=== PATIENT | male | born 1945 | race Hispanic/Latino ===

== ENCOUNTER 2016-12-06 10:38 | Emergency (ER) | payer MEDICARE ==
[~2016-12-06 10:38] MED LIST: SODIUM BICARBONATE IV ONE
--- NOTE | 2016-12-06 13:29 | Emergency Department Report ---
[id number] CARDIAC ARREST Time Seen by Provider: 12/06/16 11:28 Source: EMS Mode of arrival: Stretcher Limitations: Other - History of Present Illness Initial comments: Medics states that the patient was last seen at 3 AM. I am not certain if this history is entirely accurate after talking to the of the patient. She states that she saw the patient take his "last gasp" for she called the medics. In any case the medics arrived at the scene found the patient pulseless and apneic. He was frankly cyanotic. They attempted resuscitation. They state that they intubated the patient lost the endotracheal tube lost it transporting the patient to the ramp. He placed an IO catheter without difficulty. Usual ACLS protocols ensued. The told me later upon counseling that the patient was in respiratory distress or difficulty at a minimum yesterday but refused to come to the hospital. - Related Data Home Medications Medication Instructions Recorded Confirmed Last Taken Aspirin EC [Aspirin Enteric Coated 81 mg PO QDAY 12/06/16 12/06/16 Unknown TAB] AtorvaSTATin [Lipitor] 80 mg PO DAILY 12/06/16 12/06/16 Unknown Cholecalciferol Vit D3 [Vitamin D3] 1,000 unit PO QDAY 12/06/16 12/06/16 Unknown Clopidogrel [Plavix] 75 mg PO QDAY 12/06/16 12/06/16 Unknown Furosemide [Lasix TAB] 40 mg PO QDAY 12/06/16 12/06/16 Unknown Levothyroxine [Synthroid] 75 mcg PO QAM 12/06/16 12/06/16 Unknown Lisinopril [Zestril TAB] 10 mg PO QDAY 12/06/16 12/06/16 Unknown Metoprolol [Lopressor TAB] 50 mg PO BID 12/06/16 12/06/16 Unknown amLODIPine [Norvasc] 10 mg PO DAILY 12/06/16 12/06/16 Unknown buPROPion SR [Wellbutrin Sr] 150 mg PO BID 12/06/16 12/06/16 Unknown tiZANidine [Zanaflex] 4 mg PO QHS 12/06/16 12/06/16 Unknown traMADol [Ultram] 50 mg PO Q4HR PRN 12/06/16 12/06/16 Unknown ED Review of Systems ROS: Stated complaint: CARDIAC ARREST Other details as noted in HPI ED Past Medical Hx - Past Medical History Hx Congestive Heart Failure: Yes Hx Diabetes: Yes Hx COPD: Yes - Medications Home Medications: Home Medications Medication Instructions Recorded Confirmed Last Taken Type Aspirin EC [Aspirin Enteric Coated 81 mg PO QDAY 12/06/16 12/06/16 Unknown History TAB] AtorvaSTATin [Lipitor] 80 mg PO DAILY 12/06/16 12/06/16 Unknown History Cholecalciferol Vit D3 [Vitamin D3] 1,000 unit PO QDAY 12/06/16 12/06/16 Unknown History Clopidogrel [Plavix] 75 mg PO QDAY 12/06/16 12/06/16 Unknown History Furosemide [Lasix TAB] 40 mg PO QDAY 12/06/16 12/06/16 Unknown History Levothyroxine [Synthroid] 75 mcg PO QAM 12/06/16 12/06/16 Unknown History Lisinopril [Zestril TAB] 10 mg PO QDAY 12/06/16 12/06/16 Unknown History Metoprolol [Lopressor TAB] 50 mg PO BID 12/06/16 12/06/16 Unknown History amLODIPine [Norvasc] 10 mg PO DAILY 12/06/16 12/06/16 Unknown History buPROPion SR [Wellbutrin Sr] 150 mg PO BID 12/06/16 12/06/16 Unknown History tiZANidine [Zanaflex] 4 mg PO QHS 12/06/16 12/06/16 Unknown History traMADol [Ultram] 50 mg PO Q4HR PRN 12/06/16 12/06/16 Unknown History ED Physical Exam - General Limitations: Other Critical care attestation.: If time is entered above; I have spent that time in minutes in the direct care of this critically ill patient, excluding procedure time. ED Disposition Clinical Impression: Cardiac arrest Disposition: Is pt being admited?: No Does the pt Need Aspirin: No Condition: Stable Referrals: PRIMARY CARE, [Primary Care Provider] - 3-5 Days Time of Disposition: 13:51
--- NOTE | 2016-12-06 13:40 | Emergency Department Report ---
ED CPR HPI - General Chief Complaint: Cardiac Arrest/CPR Stated Complaint: CARDIAC ARREST Time Seen by Provider: 12/06/16 11:28 Source: EMS Mode of arrival: Stretcher Limitations: Other - History of Present Illness Initial Comments: Medics states that the patient was last seen at 3 AM. I am not certain if this history is entirely accurate after talking to the of the patient. She states that she saw the patient take his "last gasp" for she called the medics. In any case the medics arrived at the scene found the patient pulseless and apneic. He was frankly cyanotic. They attempted resuscitation. They state that they intubated the patient lost the endotracheal tube lost it transporting the patient to the ramp. He placed an IO catheter without difficulty. Usual ACLS protocols ensued. The told me later upon counseling that the patient was in respiratory distress or difficulty at a minimum yesterday but refused to come to the hospital. MD Complaint: found unresponsive -: minute(s), hour(s) Place: home Bystander CPR Performed: No Initial Findings in the Field: lethargic, systole ROSC in the Field: No Associated Injuries: No Associated Symptoms: shortness of breath - Related Data Home Medications Medication Instructions Recorded Confirmed Last Taken Aspirin EC [Aspirin Enteric Coated 81 mg PO QDAY 12/06/16 12/06/16 Unknown TAB] AtorvaSTATin [Lipitor] 80 mg PO DAILY 12/06/16 12/06/16 Unknown Cholecalciferol Vit D3 [Vitamin D3] 1,000 unit PO QDAY 12/06/16 12/06/16 Unknown Clopidogrel [Plavix] 75 mg PO QDAY 12/06/16 12/06/16 Unknown Furosemide [Lasix TAB] 40 mg PO QDAY 12/06/16 12/06/16 Unknown Levothyroxine [Synthroid] 75 mcg PO QAM 12/06/16 12/06/16 Unknown Lisinopril [Zestril TAB] 10 mg PO QDAY 12/06/16 12/06/16 Unknown Metoprolol [Lopressor TAB] 50 mg PO BID 12/06/16 12/06/16 Unknown amLODIPine [Norvasc] 10 mg PO DAILY 12/06/16 12/06/16 Unknown buPROPion SR [Wellbutrin Sr] 150 mg PO BID 12/06/16 12/06/16 Unknown tiZANidine [Zanaflex] 4 mg PO QHS 12/06/16 12/06/16 Unknown traMADol [Ultram] 50 mg PO Q4HR PRN 12/06/16 12/06/16 Unknown ED Review of Systems ROS: Stated complaint: CARDIAC ARREST Other details as noted in HPI Comment: Unobtainable due to pts medical conditions ED Past Medical Hx - Past Medical History Hx Congestive Heart Failure: Yes Hx Diabetes: Yes Hx COPD: Yes - Social History Substance Use Type: None - Medications Home Medications: Home Medications Medication Instructions Recorded Confirmed Last Taken Type Aspirin EC [Aspirin Enteric Coated 81 mg PO QDAY 12/06/16 12/06/16 Unknown History TAB] AtorvaSTATin [Lipitor] 80 mg PO DAILY 12/06/16 12/06/16 Unknown History Cholecalciferol Vit D3 [Vitamin D3] 1,000 unit PO QDAY 12/06/16 12/06/16 Unknown History Clopidogrel [Plavix] 75 mg PO QDAY 12/06/16 12/06/16 Unknown History Furosemide [Lasix TAB] 40 mg PO QDAY 12/06/16 12/06/16 Unknown History Levothyroxine [Synthroid] 75 mcg PO QAM 12/06/16 12/06/16 Unknown History Lisinopril [Zestril TAB] 10 mg PO QDAY 12/06/16 12/06/16 Unknown History Metoprolol [Lopressor TAB] 50 mg PO BID 12/06/16 12/06/16 Unknown History amLODIPine [Norvasc] 10 mg PO DAILY 12/06/16 12/06/16 Unknown History buPROPion SR [Wellbutrin Sr] 150 mg PO BID 12/06/16 12/06/16 Unknown History tiZANidine [Zanaflex] 4 mg PO QHS 12/06/16 12/06/16 Unknown History traMADol [Ultram] 50 mg PO Q4HR PRN 12/06/16 12/06/16 Unknown History ED Physical Exam - General Limitations: Other General appearance: other (GCS 3) - Head Head exam: Present: atraumatic - Eye Eye exam: Present: other (fixed and dilated) - ENT ENT exam: Present: normal exam - Neck Neck exam: Present: normal inspection - Respiratory Respiratory exam: Present: rhonchi - Cardiovascular Cardiovascular Exam: Present: other (asystole, no heart sounds) - GI/Abdominal GI/Abdominal exam: Present: soft - Extremities Exam Extremities exam: Present: other (without deformity) - Skin Skin exam: Present: warm, cyanosis ED Course - Reevaluation(s) Reevaluation #1: Counceled with family. Patient pronounced SHIV. 12/06/16 13:46 Critical care attestation.: If time is entered above; I have spent that time in minutes in the direct care of this critically ill patient, excluding procedure time. ED Disposition Clinical Impression: Cardiac arrest Disposition: Is pt being admited?: No Does the pt Need Aspirin: No Condition: Stable Time of Disposition: 13:48
== END 2016-12-06 13:30 ==
LOC: ED 10:38
DX: I46.9 Cardiac arrest, cause unspecified (principal); I50.9 Heart failure, unspecified; E11.9 Type 2 diabetes mellitus without complications; J44.9 Chronic obstructive pulmonary disease, unspecified
CPT/HCPCS: 31500